=== PATIENT | male | born 1980 | race Caucasian/White ===

== ENCOUNTER 2024-10-27 15:01 | Emergency (ER) | payer OTHER, SELFPAY ==
[2024-10-27 15:11] VITALS: BP 114/56; PULSE 87; TEMP 37.3; O2SAT 99
[2024-10-27 15:14] VITALS: BP 114/56
--- NOTE | 2024-10-27 15:44 | PC.NURSE ---
no bruising, rash or swelling to site of complaint
--- NOTE | 2024-10-27 15:45 | PC.NURSE ---
right lower back pain, no bruising, rash or swelling.
--- NOTE | 2024-10-27 15:55 | ED.GENADUL1 ---
HPI HPI - General Adult General Chief complaint: Back Pain/Injury Stated complaint: lower right back and left arm pain Time Seen by Provider: 10/27/24 15:06 Source: patient and family Mode of arrival: walk-in History of Present Illness HPI narrative: 44-year-old male patient here with family members. He is able to provide some information but the family are the primary historians. Normally he does not complain of much pain and he is able to tolerate a lot but he has been telling them that his right lower flank area has been hurting him today today. He has not had any trauma injury or change in activity he has not had abnormal breathing patterns or any anterior chest pain. He has no known history that they know of kidney disease, kidney infections or kidney stones. He has not had vomiting with this. He also complains of left tricep area pain but no other extremity, trunk or torso discomfort. His vital signs here are stable. He is able to reach back and show me where it hurts is in the right mid to upper lumbar area paraspinal. He does not have pain or discomfort in the midline. Does not have any pain in his abdomen. Related Data Home Medications ?Medication ?Instructions ?Recorded ?Confirmed No Known Home Medications 10/27/24 10/27/24 Allergies Allergy/AdvReac Type Severity Reaction Status Date / Time No Known Drug Allergies Allergy Verified 10/27/24 15:17 Opioid HPI Opioid Management Most Recent Opioid Data: No Data to Display Exam Narrative Exam Narrative: 44-year-old male pleasant does not appear uncomfortable watching the football game, confides in his family that is not bothering him that much at this time. He does appear to have Down syndrome. Examining his back there is no gross kyphoscoliosis there is no bruises no lesions no ecchymosis or contusions. He does not have tenderness percussion in the left flank and back area. No pain in the midline to percussion and he has some minor discomfort in the right paralumbar area but no evidence of skin lesions. Hip range of motion does not reproduce any pain or discomfort on that side. Examining his left upper arm I do not see any joint swelling ecchymosis bruising or evidence of injury. He points to the tricep area and yet his muscle strength and the clinical examination are totally benign. Examination abdomen previous surgical incisions from laparoscopic cholecystectomy are noted. He does not have any pain or discomfort with palpation anyplace in the abdominal area. Constitutional Vital Signs, click to edit/add: Last Vital Signs Temp 99.2 F 10/27/24 15:11 Pulse 87 10/27/24 15:11 Resp 18 10/27/24 15:11 BP 114/56 10/27/24 15:11 Pulse Ox 99 10/27/24 15:11 O2 Del Method Room Air 10/27/24 15:11 Course Vital Signs Vital signs: Vital Signs Temperature 99.2 F 10/27/24 15:11 Pulse Rate 87 10/27/24 15:11 Respiratory Rate 18 10/27/24 15:11 Blood Pressure 114/56 10/27/24 15:11 Pulse Oximetry 99 10/27/24 15:11 Oxygen Delivery Method Room Air 10/27/24 15:11 Temperature 99.2 F 10/27/24 15:11 Pulse Rate 87 10/27/24 15:11 Respiratory Rate 18 10/27/24 15:11 Blood Pressure 114/56 10/27/24 15:11 Pulse Oximetry 99 10/27/24 15:11 Oxygen Delivery Method Room Air 10/27/24 15:11 Medical Decision Making MDM Narrative Medical decision making narrative: 44-year-old complaining of right flank pain. A CT scan without contrast was done and it is a normal study with no evidence of kidney complications or disease condition. His chest x-ray is also benign. Clinical examination triceps area was benign. We have treated him with supportive care. He did not provide urinalysis and would like him to do so but can do this as an outpatient. In the absence of a fever or other heart physical findings I do not believe he has a pyelonephritis. Discharge Plan Discharge Chief Complaint: Back Pain/Injury Clinical Impression: Acute right flank pain Patient Disposition: Home, Self-Care Time of Disposition Decision: 17:33 Prescriptions / Home Meds: No Action No Known Home Medications Print Language: [place] Additional Instructions: May use [id number] Tylenol or Toradol as needed for pain. Follow-up with primary care doctor if symptoms persist or new symptoms develop Referrals: John Couch MD [Primary Care Provider] - 1 week
--- NOTE | 2024-10-27 15:58 | ECG_ITS ---
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
--- NOTE | 2024-10-27 15:58 | XR_ITS ---
[address] [address] Patient Name: SAMUEL ELLIOTT MRN: [id number] date: 1980 Sex: M Assigned Patient Location: ER Current Patient Location: ER Accession/Order Number: [id number] Exam Date: 10/27/2024 16:32 Report Date: 10/27/2024 17:13 At the request of: JUAN EDWARDS Procedure: XR chest 1V EXAM: XR chest 1V HISTORY: Right flank pain COMPARISON: None. TECHNIQUE: AP upright portable chest FINDINGS: There is mild bibasilar atelectasis. No consolidation, effusion, or pneumothorax. Pulmonary vasculature is normal. Heart size within normal limits. XR/XR chest 1V IMPRESSION: 1. Mild bibasilar atelectasis. No consolidation. Electronically authenticated by: JESSICA GODDARD Date: 10/27/2024 17:13
--- NOTE | 2024-10-27 16:00 | CT_ITS ---
[address] [address] Patient Name: SAMUEL ELLIOTT MRN: [id number] date: 1980 Sex: M Assigned Patient Location: ER Current Patient Location: Accession/Order Number: [id number] Exam Date: 10/27/2024 16:36 Report Date: 10/27/2024 17:25 At the request of: JUAN EDWARDS Procedure: CT abdomen pelvis wo con EXAM: CT scan of the abdomen and pelvis without contrast. Dose reduction technique used: Automated exposure control and/or adjustment of the mA and/or kV according to patient size and/or use of iterative reconstruction technique. REASON FOR EXAM: Stones COMPARISON: None FINDINGS: Small fat-containing periumbilical hernia. Lumbar scoliosis. Cholecystectomy. Grade 1 anterolisthesis of L3 on L4. Advanced L3-L4 degenerative disc change. Tiny nonobstructing calyceal tip renal stone. No ureteral or bladder calculi. No hydronephrosis. Normal appendix. No free fluid in the abdomen or pelvis. No free intraperitoneal air. No dilated or thickened loops of small bowel or colon. Liver, pancreas, spleen, bilateral kidneys, and bilateral adrenal glands are otherwise unremarkable within the limitations of noncontrast CT. No lymphadenopathy in the abdomen or pelvis. Remainder unremarkable. CT/CT abdomen pelvis wo con IMPRESSION: No acute abnormalities in the abdomen or pelvis. Electronically authenticated by: ALEXANDER CLIFTON Date: 10/27/2024 17:25
[2024-10-27 16:17] VITALS: PULSE 86
[2024-10-27 16:20] VITALS: PULSE 84; PULSE 88
[2024-10-27 16:30] VITALS: PULSE 84
[2024-10-27 16:42] LABS: Basophils Percent Auto 0.4 % (0.2-2.0); Eosinophils Percent Auto 0.1 % (0.9-7.0); Hematocrit 39.4 % (42.0-54.0); Hemoglobin 13.1 g/dL (14.0-18.0); Immature Granulocytes Abs Auto 0.06 10^3/uL (0.00-0.03); Immature Granulocytes Pct Auto 0.5 % (0.0-0.5); Mean Corpuscular HGB Conc 33.2 g/dL (29.9-35.2); Mean Corpuscular Hemoglobin 33.3 pg (25.9-34.0); Mean Corpuscular Volume 100.3 fL (80.0-94.0); Mean Platelet Volume 10.1 fL (9.5-13.5); Monocytes Absolute Auto 1.3 10^3/uL (0.3-0.8); Monocytes Percent Auto 11.9 % (1.7-12.0); Neutrophils Absolute Auto 8.5 10^3/uL (1.4-6.5); Neutrophils Percent Auto 78.1 % (43.0-75.0); Platelet Count 297 10^3/uL (150-450); Red Blood Count 3.93 10^6/uL (4.70-6.10); Red Cell Distribution Width 12.7 % (11.0-15.0); White Blood Count 10.9 10^3/uL (4.0-11.0)
[2024-10-27 17:03] LABS: Alanine Aminotransferase 24 U/L (16-63); Albumin Globulin Ratio 0.4; Albumin Level 2.4 g/dL (3.4-5.0); Alkaline Phosphatase 88 U/L (46-116); Anion Gap 8.2; Aspartate Amino Transferase 20 U/L (15-37); BUN Creatinine Ratio 12.9; Bilirubin Total 0.7 mg/dL (0.2-1.0); Calcium 8.6 mg/dL (8.5-10.1); Carbon Dioxide 31.7 mmol/L (21.0-32.0); Chloride 100 mmol/L (98-107); Estimated GFR (African America >60 (>=60 mL/min/1.73m^2); Estimated GFR (Non-African Ame >60 (>=60 mL/min/1.73m^2); Globulin 5.5 g/dL; Glucose 100 mg/dL (74-106); Potassium 3.9 mmol/L (3.5-5.1); Sodium 136 mmol/L (136-145); Total Protein 7.9 g/dL (6.4-8.2)
[2024-10-27] MEDS: KETOROLAC TROMETHAMINE 10 MG TABLET PO (17:53)
[2024-10-27 18:10] VITALS: BP 113/70; PULSE 77; O2SAT 95
== END 2024-10-27 18:10 | disposition home or self-care (01) ==
PROVIDERS: Emergency Provider Emergency Medicine Emergency Medical Services; PCP Family Medicine
DX: R10.9 Unspecified abdominal pain (principal); M79.602 Pain in left arm; Q90.9 Down syndrome, unspecified; Z90.49 Acquired absence of other specified parts of digestive tract
CPT/HCPCS: 36415; 71045; 74176; 80053; 85025; 93005; 99285